=== PATIENT | female | born 1980 | race Caucasian/White ===

== ENCOUNTER 2023-07-08 17:45 | Emergency (ER) | payer OTHER, SELFPAY ==
[2023-07-08 17:50] VITALS: BP 122/80; PULSE 84; O2SAT 99
[2023-07-08 18:14] VITALS: BP 109/62; PULSE 100; RESP 18; TEMP 37; O2SAT 94; BMI 29.4
--- NOTE | 2023-07-08 18:18 | ED.MEDCLEAR ---
HPI - Medical Clearance General Chief complaint: Medical Clearance Stated complaint: COCAINE USE Time Seen by Provider: 07/09/23 00:54 Source: patient and RN notes reviewed Mode of arrival: ambulatory Limitations: no limitations History of Present Illness HPI Narrative: This is a 42-year-old female, with a history of polysubstance abuse, presenting to the emergency department seeking medical clearance. Patient states that she left the and our house where she has been since May and smoked crack cocaine. She states that she is feeling well and would like to return back to the and our house however needs a urine drug screen. Denies any chest pain, shortness of breath, abdominal pain, nausea, vomiting or diarrhea. She has no medical complaints. No SI or HI. No other complaints or concerns at this time. MD complaint: medical clearance requested Place: street Alleged Intoxication: Yes Compliant with Home Medications: Yes Associated Symptoms: denies other symptoms Treatments Prior to Arrival: none Related Information Allergies Allergy/AdvReac Type Severity Reaction Status Date / Time No Known Allergies Allergy Verified 07/08/23 18:13 Review of Systems Review of Systems: Yes all other systems are reviewed and are negative Constitutional: Constitutional: Reports as per [facility] Social History Social History Advance Directives: No Advance Directives Information Provided: No Physical Exam Vital Signs: Vital Signs: Last Vital Signs Temp 97.8 F 07/09/23 00:24 Pulse 81 07/09/23 00:24 Resp 20 07/09/23 00:24 BP 101/58 L 07/09/23 00:24 Pulse Ox 93 07/09/23 00:24 O2 Del Method Room Air 07/09/23 00:24 BMI result Body Mass Index 29.4 Const: General: cooperative, comfortable and no acute distress Orientation/consciousness: patient oriented x3 Limitations: no limitations HEENT: Head: Yes normal to inspection, Yes normocephalic and Yes atraumatic Ears: hearing grossly normal bilaterally General nose exam: Normal external nose present Face and sinus: Yes normal facial exam Mouth: Normal oral and palatal mucosa present, oropharynx normal and moist mucous membranes Throat: Yes posterior oropharynx normal Eyes: General: appearance normal, both eyes and all related structures Eyelids: Yes eyelids normal Conjunctivae: conjunctivae normal Sclerae: sclerae normal Pupils: Equal, round and reactive pupils present EOM: EOMs intact bilaterally Neck: Neck: Yes normal visual inspection, Yes full ROM and Yes no lymphadenopathy Lymphatic: no lymphadenopathy noted Chest: Chest palpation & inspection: normal inspection of the chest Resp: Effort & Inspection: normal respiratory effort and able to speak in complete sentences Auscultation: clear to auscultation bilaterally, no crackles, no rales, no rhonchi and no wheezes Cardio: Rate: regular rate Rhythm: regular rhythm Heart sounds: S1 normal heart sound present and S2 normal heart sound present GI: Inspection: Yes normal to inspection Skin: General skin exam: no rashes or lesions noted Trauma: no lacerations or abrasions Wounds: no wounds Neuro: General: patient oriented x3 and moves all extremities Cranial nerves: Yes Equal, round and reactive pupils present Extrem: General: Yes normal to inspection Right upper extremity: normal to inspection Left upper extremity: normal to inspection Right lower extremity: normal to inspection Left lower extremity: normal to inspection Course Course Course Narrative: RME: Patient presents to the ED for drug use. Sober house once [facility] for medical clearance. cocaine use. no phsycial compaltins. Medical Decision Making Medical Decision Making [facility] Narrative: This is a 42-year-old female, with a history of polysubstance abuse, presenting to the emergency department for medical clearance. She smoked crack cocaine this evening and would like to return back to the [facility]. She has normal vital signs. Urine drug screen reveals positive opiates, fentanyl, and cocaine. She has no medical complaints. No chest pain, shortness of breath. She is clinically sober. Discussed findings with patient, she has no questions or concerns, no other complaints or concerns at this time. Differential Diagnosis Differential Diagnoses: The differential diagnosis associated with the presentation includes Polysubstance use, depression, anxiety, opioid use disorder, overdose Lab Data [facility] Lab Attestation statement: I reviewed the patient's lab results. Positive opiates, fentanyl, and cocaine Labs: Lab Results 07/08/23 Range/Units 20:24 Urine Opiates Screen POSITIVE H (Not Detect) Urine Fentanyl Screen POSITIVE H (Not Detect) Ur Barbiturates Screen Not Detected (Not Detect) Ur Phencyclidine Scrn Not Detected (Not Detect) Ur Amphetamines Screen Not Detected (Not Detect) U Benzodiazepines Scrn Not Detected (Not Detect) Urine Cocaine Screen POSITIVE H (Not Detect) U Marijuana (THC) Screen Not Detected (Not Detect) Radiology Impression Discussion of test interpretation with radiology: I have reviewed the radiologist's reading. Discharge Plan Discharge Clinical Impression: Polysubstance abuse Patient Disposition: Home, Self-Care Instructions: Polysubstance Abuse (ED) Additional Instructions: You were seen in the emergency department for medical clearance. Your urine today shows your positive for opiates, fentanyl, and cocaine. Please avoid using drugs as they will kill you. If any new or worsening symptoms occur, including chest pain or shortness of breath, please return for re-evaluation. Interventions: ED Discharge Assessment Last Done: 07/09/23 01:17 Discharge Date/Time: 07/09/23 01:18
[2023-07-08 20:43] LABS: Amphetamine Screen Urine Not Detected (Not Detect); Barbiturates, Urine Not Detected (Not Detect); Benzodiazepines Screen Urine Not Detected (Not Detect); Cannabinoid Screen Urine Not Detected (Not Detect); Cocaine Screen Urine POSITIVE (Not Detect); Fentanyl, urine POSITIVE (Not Detect); Opiate Screen Urine POSITIVE (Not Detect); Phencyclidine Screen Urine Not Detected (Not Detect)
[2023-07-09 00:24] VITALS: BP 101/58; PULSE 81; RESP 20; TEMP 36.6; O2SAT 93
== END 2023-07-09 01:18 | disposition home or self-care (01) ==
PROVIDERS: Physician Assistant; Emergency Provider Internal Medicine
DX: Z02.83 Encounter for blood-alcohol and blood-drug test (principal); F19.10 Other psychoactive substance abuse, uncomplicated
CPT/HCPCS: 80307; 99282; 99284

== ENCOUNTER 2023-07-30 17:30 | Emergency (ER) | payer OTHER, SELFPAY ==
[2023-07-30 17:36] VITALS: BP 111/70; PULSE 96; O2SAT 97
--- NOTE | 2023-07-30 17:44 | ED.OVERDOSE ---
HPI - Overdose General Chief Complaint: ETOH/Substance Use Stated Complaint: NARCOTIC USE Time Seen by Provider: 07/30/23 17:40 Source: patient Mode of arrival: EMS History of Present Illness HPI Narrative: 42-year-old female who presents via EMS for accidental overdose, she denies any SI/HI and states she is already in a half-way house, she sees a psychiatrist regularly and is currently on prescription medications which she states that she has been taking. Patient reports having taken heroin and crack. Related Data Allergies Allergy/AdvReac Type Severity Reaction Status Date / Time No Known Allergies Allergy Verified 07/08/23 18:13 Review of Systems Review of Systems: Pertinent positives and negatives as stated in HPI PMFSH Past Medical History Source: nursing notes reviewed Social History Social History Advance Directives: No Advance Directives Information Provided: No Physical Exam Vital Signs: Vital Signs: Last Vital Signs Temp 98.5 F 07/30/23 18:00 Pulse 85 07/30/23 18:00 Resp 16 07/30/23 18:00 BP 91/49 L 07/30/23 18:00 Pulse Ox 92 07/30/23 18:00 O2 Del Method Room Air 07/30/23 18:00 BMI result Body Mass Index 25.7 VITAL SIGNS: Reviewed. GENERAL: Well developed, well nourished, in no acute distress. HEAD: Normocephalic/atraumatic EYES: PERRLA, EOMI EARS: Ext canals without abnormality NOSE: Nares patent bilateral OROPHARYNX: no oral lesions noted, posterior pharynx clear NECK: Supple, no adenopathy LUNGS: Normal breath sounds. No adventitious sounds or accessory muscle use. SpO2<92> CARDIOVASCULAR: Regular rate and rhythm without noted murmurs ABDOMEN: Soft, non-tender, non-distended with bowel sounds. MUSCULOSKELETAL: No tenderness, deformities, or effusions noted on gross inspection. EXTREMITIES: No cyanosis, clubbing or edema. SKIN: Inspection of the skin reveals no rashes NEUROLOGIC: Alert and oriented x 4. Strength and sensation to light touch were grossly intact x 4. Medical Decision Making Medical Decision Making MDM Narrative: 42-year-old female with history and clinical presentation most consistent with accidental overdose there is no evidence to suggest intentional attempt and she continues to decline SI/HI. She is hemodynamically stable and will be discharged with home Narcan. 190: NIKOLAY Eval.. [facility] [place] facility is declining return. Pt is not interested in detox. Mom is going to come and pick her up. Patient is otherwise discharged home with home Narcan continues to endorse that she is not suicidal or homicidal. Differential Diagnosis Differential Diagnoses: The differential diagnosis associated with the presentation includes Please see the discussion above Admission/Observation Consideration of admission/observation: Escalation of care including admission/observation considered Please see the discussion above Lab Data MDM Lab Attestation statement: I reviewed the patient's lab results. Please see the discussion above Critical Care Time Critical Care Time Critical Care Time: Yes Total Critical Care Time: 45 Attestation: I personally attest to this time spent taking care of the patient. Discharge Plan Discharge Clinical Impression: Overdose Patient Disposition: Home, Self-Care Instructions: Adult Overdose (ED) Additional Instructions: Please return to this emergency room if you experience any worsening of symptoms or whether you need additional assistance or feel overwhelmed.
[2023-07-30 18:00] VITALS: BP 91/49; PULSE 85; RESP 16; TEMP 36.9; O2SAT 92; BMI 25.7
--- NOTE | 2023-07-30 18:09 | PC.NURSE ---
patient changed into hospital attire, belongings in decon patient has her phone at bedside. patient is alert oriented, calm and cooperative. respirations equal and unlabored, VSS
--- OUTSIDE RECORDS SUMMARY | 2023-07-30 19:01 | XMS_ITS | Continuity of Care Document ---
Author Name Unknown Organization [facility] Address [address] [place] [address]- Care Team Providers Care Clinical Immunologist Name Role Phone Melanie Charlton NP Primary Care Physician Encounter [facility] Date(s): 08/24/21 - 09/26/21 [facility] [address] [place] [address]- Attending Physician: Yovanny Carr MD Referring Physician: Melanie Charlton NP Allergies, Adverse Reactions, Alerts No Known Allergies Immunizations Given and Recorded Vaccine Date Status Refusal Reason tetanus/diphtheria/pertussis, acel(Tdap) 06/24/17 Given Social History Social History Type Response Tobacco Type: Cigarettes. To bacco use times per day: foremr smoker, 1/2 PPD. Started at age: 19 Years. Stopped at age: 35 Years. Sex
--- OUTSIDE RECORDS SUMMARY | 2023-07-30 19:01 | XMS_ITS | Continuity of Care Document ---
Author Name Unknown Organization [facility] [place] Address [address] [place] [address]- Care Team Providers Care Front End Engineer Name Role Phone Melanie Charlton NP Primary Care Physician Encounter [facility] Date(s): 10/19/21 - 11/18/21 [facility] [place] [address] [place] [address]- Allergies, Adverse Reactions, Alerts No Known Allergies Immunizations Given and Recorded Vaccine Date Status Refusal Reason tetanus/diphtheria/pertussis, acel(Tdap) 06/24/17 Given Social History Social History Type Response Tobacco Type: Cigarettes. To bacco use times per day: foremr smoker, 1/2 PPD. Started at age: 19 Years. Stopped at age: 35 Years. Sex
--- OUTSIDE RECORDS SUMMARY | 2023-07-30 19:01 | XMS_ITS | Continuity of Care Document ---
Author Name Unknown Organization [facility] Address [address] [place] [address]- Care Team Providers Care Head Of Marketing Name Role Phone Melanie Charlton NP Primary Care Physician Encounter [facility] Date(s): 10/16/21 - 10/16/[address] [address]- Discharge Disposition: A-D/C Home Attending Physician: Ever Dumont MD Admitting Physician: Tim LAUREN, Ever Bush Referring Physician: Not on Staff, Referring MD Allergies, Adverse Reactions, Alerts No Known Allergies Immunizations Given and Recorded Vaccine Date Status Refusal Reason tetanus/diphtheria/pertussis, acel(Tdap) 06/24/17 Given Medications ibuprofen 600 mg oral tablet 600 mg, 1, tablet, By Mouth, Every 6 hours, PRN, # 16 tablet, Refills 0, Tot. Refills 0, Acute 10/24/21 11:48:00 EDT, Pain , Moderate, 10/16/21 11:48:00 EDT, Route to Pharmacy Electronically, [facility]/pharmacy #[id number], Partial fill upon patient request if th... Start Date: 10/16/21 Stop Date: 10/24/21 Status: Ordered ondansetron 4 mg oral tablet, disintegrating 1 tablet = 4 mg, By Mouth, Every 6 hours, PRN as needed for nausea/vomiting, # 14 tablet, 0 Refills, Maintenance, 10/16/21 11:48:00 EDT, DIS Tablet, [id number], Partial fill upon patient request if the prescription is for a schedule II opioid... Start Date: 10/16/21 Status: Ordered Vital Signs Most recent to oldest [Reference Range]: 1 2 Height 167 cm (10/16/21 11:24 AM) 167 cm (10/16/21 AM) Weight 77.4 kg (10/16/2124 AM) 77.4 kg (10/16/21 AM) Oxygen Saturation [94-100 %] 100 % (10/16/21 AM) Pulse Rate [55-90 bpm] 84 bpm (10/16/21 AM) Body Mass Index [18.5-24.99] 27.75 *H* (10/16/21 AM) Blood Pressure [90-138/55-84 mm Hg] 132/ 89mm Hg (10/16/21 AM) Respiratory Rate [16-30 br/min] 17 br/mi n (10/16/21 AM) Temperature [96.8-100.4 DegF] 99.9 DegF (10/16/21 AM) Mode of Delivery (Oxygen) Room air (10/16/21 AM) Blood pressure sites Arm, right (10/16/21 AM) Temperature Route Temporal (10/16/21 AM) Dry Weight 77.4 kg (10/16/21:24 AM) 77.4 kg (10/16/21 AM) Weight Obtained Via Standing scale (10/16/21 AM) Dry Weight Obtained Via Standing scale (10/16/21 AM) Social History Social History Type Response Tobacco Type: Cigarettes. To bacco use times per day: foremr smoker, 1/2 PPD. Started at age: 19 Years. Stopped at age: 35 Years. Sex
--- OUTSIDE RECORDS SUMMARY | 2023-07-30 19:01 | XMS_ITS | Continuity of Care Document ---
Author Name Unknown Organization [facility] [place] Address [address] [place] [address]- Care Team Providers Care Ambulatory Care Coordinator Name Role Phone Melanie Charlton NP Primary Care Physician ( [phone] Encounter [facility] Date(s): 08/21/21 - 11/29/21 [facility] [place] [address] [place] [address]- Attending Physician: Arvind LAUREN ([facility]), José Miguel Bush Allergies, Adverse Reactions, Alerts No Known Allergies Immunizations Given and Recorded Vaccine Date Status Refusal Reason tetanus/diphtheria/pertussis, acel(Tdap) 06/24/17 Given Medications Aerochamber See Instructions, # 1 each, Maintenance, Use with MDI, 11/28/21 17:04:00 EDT, Supply, 168, cm, 11/28/21 13:16:00 EDT, Height, 83.2, kg, 11/27/21 9:20:00 EDT, Dry Weight Start Date: 11/28/21 Status: Ordered albuterol CFC free 90 mcg/inh inhalation aerosol 2, puffs, Inhalation, Every 4 hours, PRN, use with spacer chamber, # 8 Gm, Refills 0, Tot. Refills 0, Maintenance, 11/28/21 17:02:00 EDT, Aerosol, Route to Pharmacy Electronically, [id number], [facility]/pharmacy #[id number], 168, cm, ... Start Date: 11/28/21 Status: Ordered Bactrim DS 800 mg-160 mg oral tablet 1 tablet, By Mouth, 2 times a day, for 5 days, # 10 tablet, 0 Refills, Acute 12/03/21 21:00:00 EDT,06/01/22 21:00:00 EDT, Tablet, [id number], 1 tablet By Mouth 2 times a day,x5 days, 168, cm, 11/28/21 13:16:00 EDT, Height, 83.2, kg, 11/27/21... Start Date: 11/28/21 Stop Date: 12/03/21 Status: Ordered Problem List Condition Effective Dates Status Health Status Inform ant Elevated hemoglobin A1c(Confirmed) Active Social History Social History Type Response Tobacco Type: Cigarettes. To bacco use times per day: foremr smoker, 1/2 PPD. Started at age: 19 Years. Stopped at age: 35 Years. Sex
--- OUTSIDE RECORDS SUMMARY | 2023-07-30 19:01 | XMS_ITS | Continuity of Care Document ---
Author Name Unknown Organization [facility] [place] Address [address] [place] [address]- Care Team Providers Care Capacitor Repairer Name Role Phone Melanie Charlton NP Primary Care Physician Encounter [facility] Date(s): 09/12/22 - 10/12/22 [facility] [address] [place], [place] [address] Allergies, Adverse Reactions, Alerts No Known Allergies [...] 17:02:00 EDT, Aerosol, Route to Pharmacy Electronically, [id number], [facility]/pharmacy #[id number], 168, cm, ... Start Date: 11/28/21 Status: Ordered predniSONE 5 mg oral tablet 3 tablet = 15 mg, By Mouth, Daily, # 90 tablet, 0 Refills, Maintenance, 10/31/21 13:00:00 EDT, [id number], Partial fill upon patient request if the prescription is for a schedule II opioid drug., 167, cm, 10/31/21 12:34:00 EDT, Height, 77.4, k... Start Date: 10/31/21 Status: Ordered Problem List Condition Confirmation Course Effective Dates Status Health St atus Informant Elevated hemoglobin A1c Confirmed Active Social History Social History Type Response Tobacco Type: Cigarettes. To bacco use times per day: foremr smoker, 1/2 PPD. Started at age: 19 Years. Stopped at age: 35 Years. Sex Patient Care team information Care Team Personnel Name: Melanie Charlton NP Position: [facility] Associate Professional Member Role: PCP Address: Address: [address] [place] [address]- Care Team Related Persons Name: MARYCARMEN MALDONADO Address: home [address] [place] [address] [place] [address]
--- OUTSIDE RECORDS SUMMARY | 2023-07-30 19:02 | XMS_ITS | Continuity of Care Document ---
Author Name Unknown Organization [facility] Address [address] [place] [address]- Care Team Providers Care Microsoft Dynamics Consultant Name Role Phone Melanie Charlton NP Primary Care Physician ( [phone] Encounter [facility] Date(s): 02/21/22 - 03/23/22 [facility] [address] [place], [place] [address] [place] Attending Physician: Zuleika Flynn Admitting Physician: AdmtrZuleika Referring Physician: Admtr, ArJohn Allergies, Adverse Reactions, Alerts No Known Allergies [...] 17:02:00 EDT, Aerosol, Route to Pharmacy Electronically, [id number], [id number], 168, cm, ... Start Date: 11/28/21 Status: Ordered predniSONE 5 mg oral tablet 3 tablet = 15 mg, By Mouth, Daily, # 90 tablet, 0 Refills, Maintenance, 10/31/21 13:00:00 EDT, [id number], Partial fill upon patient request if the prescription is for a schedule II opioid drug., 167, cm, 10/31/21 12:34:00 EDT, Height, 77.4, k... Start Date: 10/31/21 Status: Ordered Problem List Condition Effective Dates Status Health Status Inform ant Elevated hemoglobin A1c(Confirmed) Active Social History Social History Type Response Tobacco Type: Cigarettes. To bacco use times per day: foremr smoker, 1/2 PPD. Started at age: 19 Years. Stopped at age: 35 Years. Sex Care Team Personnel Name: Melanie Charlton NP Address: [address] [place] [address]
--- OUTSIDE RECORDS SUMMARY | 2023-07-30 19:02 | XMS_ITS | Continuity of Care Document ---
Author Name Unknown Organization [facility] Address [address] [place] [address]- Care Team Providers Care Underwriting Consultant Name Role Phone Melanie Charlton NP Primary Care Physician Encounter [facility] Date(s): 08/27/21 - 09/26/21 [facility] [address] [place] [address]- Allergies, Adverse Reactions, Alerts No Known Allergies Immunizations Given and Recorded Vaccine Date Status Refusal Reason tetanus/diphtheria/pertussis, acel(Tdap) 06/24/17 Given Social History Social History Type Response Tobacco Type: Cigarettes. To bacco use times per day: foremr smoker, 1/2 PPD. Started at age: 19 Years. Stopped at age: 35 Years. Sex
--- OUTSIDE RECORDS SUMMARY | 2023-07-30 19:02 | XMS_ITS | Continuity of Care Document ---
Author Name Unknown Organization [facility] Address [address] [place] [address]- Care Team Providers Care Sound Engineering Technician Name Role Phone Boni SOARES, Eduardo Byrd Primary Care Physician ( [phone] Encounter [facility] [id number] Date(s): 10/22/19 - 11/21/19 [facility] [address] [address]- Attending Physician: Cammy Sosa NP Allergies, Adverse Reactions, Alerts Substance Reaction Severity Status NKA Active Immunizations Given and Recorded Vaccine Date Status Refusal Reason tetanus/diphtheria/pertussis, acel(Tdap) 06/24/17 Given Medications Chantix Starter Pack 0.5 mg-1 mg oral tablet 1 tablet, By Mouth, 2 times a day, as directed on package labeling, # 53 tablet, 0 Refills, Maintenance, 06/18/17 9:00:46, Tablet, 1 tablet By Mouth 2 times a day,Instr:as directed on package labeling Start Date: 06/18/17 Status: Ordered Social History Social History Type Response Smoking Status Current every day sm oker; Type: Cigarettes; Interested in cessation: Yes; Tobacco use times per day: 1/2 ppd; Cessation attempts: 1; entered on: 06/18/17 Sex
--- OUTSIDE RECORDS SUMMARY | 2023-07-30 19:02 | XMS_ITS | Continuity of Care Document ---
Author Name Unknown Organization [facility] Address [address] [place] [address]- Care Team Providers Care Japanese Professor Name Role Phone Boni SOARES, Eduardo Byrd Primary Care Physician Encounter [facility] Date(s): 08/14/21 - 08/14/[address] [address]- Encounter Diagnosis Joint pain(Final) - 08/14/21 Discharge Disposition: A-D/C Home Attending Physician: Garrick Lowe MD Admitting Physician: Garrick Lowe MD Referring Physician: Not on Staff, Referring MD [...] package labeling Start Date: 06/18/17 Status: Ordered Dilaudid Inj 1 mg, Injection, IV Push Slowly, Once, Routine, 08/14/21 16:00:00 EST, Stop date 08/14/21 16:00:00 EST Start Date: 08/14/21 Stop Date: 08/14/21 Status: Completed oxyCODONE 5 mg oral tablet 5 mg, 1, tablet, By Mouth, Every 6 hours, PRN, may partially fill, # 7 tablet, Refills 0, Tot. Refills 0, Acute 08/17/21 16:02:00 EST, for pain, 08/14/21 16:02:00 EST, Route to Pharmacy Electronically, [facility]/pharmacy #[id number], Partial fill upon patient req... Start Date: 08/14/21 Stop Date: 08/17/21 Status: Ordered predniSONE 20 mg oral tablet 3 tablet = 60 mg, By Mouth, Daily, for 4 days, Starting the day following your emergency departmentvisit, # 12 tablet, 0 Refills, Acute 08/18/21 16:02:00 EST, 08/14/21 16:02:00 EST, Tablet, [facility]/pharmacy #[id number], Partial fill upon patient request if the... Start Date: 08/14/21 Stop Date: 08/18/21 Status: Ordered Vital Signs Most recent to oldest [Reference Range]: 1 2 3 Height 168 cm (08/14/21 12:30 PM) Weight 83.3 kg (08/14/21 12:30 PM) Oxygen Saturation [94-100 %] 100 % (08/14/21 4:00 PM) 97 % (08/14/21 3:00 PM) 99 % (08/14/21 12:30 PM) Pulse Rate [55-90 bpm] 76 bpm (08/14/21 4:00 PM) 69 bpm (08/14/21 3:00 PM) 101 bpm *H* (08/14/21 12:30 PM) Blood Pressure [90-138/55-84 mm Hg] 112/83mm Hg (08/14/21 4:00 PM) 105/89mm Hg (08/14/21 3:00 PM) 136/78mm Hg (08/14/21 12:30 PM) Respiratory Rate [16-30 br/min] 22 br/min (08/14/21 4:00 PM) 20 br/min (08/14/21 3:06 PM) 22 br/min (08/14/21 3:00 PM) Temperature [96.8-100.4 DegF] 98.1 DegF (08/14/21 4:00 PM) 98.7 DegF (08/14/21 3:00 PM) 98.4 DegF (08/14/21 12:30 PM) Mode of Delivery (Oxygen) Room air (08/14/21 4:00 PM) Room air (08/14/21 3:00 PM) Room air (08/14/21 12:30 PM) Blood pressure sites Arm, right (2/15/22 4:00 PM) Arm, right (08/14/21 3:00 PM) Arm, right (08/14/21 12:30 PM) Temperature Route Temporal (08/14/21 4:00 PM) Oral (08/14/21 3:00 PM) Oral (08/14/21 12:30 PM) Dry Weight 83.3 kg (08/14/21 12:30 PM) Weight Obtained Via Standing scale (08/14/21 12:30 PM) Dry Weight Obtained Via Standing scale (08/14/21 12:30 PM) Social History Social History Type Response Smoking Status Current every day joseph lopez; Type: Cigarettes; Interested in cessation: Yes; Tobacco use times per day: 1/2 ppd; Cessation attempts: 1; entered on: 06/18/17 Sex
--- OUTSIDE RECORDS SUMMARY | 2023-07-30 19:02 | XMS_ITS | Continuity of Care Document ---
Author Name Unknown Organization [facility] Address [address] [place] [address]- Care Team Providers Care Enterprise Application Analyst Name Role Phone Boni SOARES, Eduardo Byrd Primary Care Physician Encounter [facility] NBR [id number] Date(s): 10/22/19 - 11/21/19 [facility] [facility] [address] [place] [address]- Attending Physician: Zuleika Flynn Admitting Physician: Zuleika Flynn Referring Physician: AdmtrZuleika Allergies, Adverse Reactions, Alerts Substance Reaction Severity [...]
--- OUTSIDE RECORDS SUMMARY | 2023-07-30 19:02 | XMS_ITS | Continuity of Care Document ---
Author Name Unknown Organization [facility] Address [address] [place] [address]- Care Team Providers Care Atomic Physics Teacher Name Role Phone Zoltan SOARES, Melanie Douglas Primary Care Physician Encounter [facility] Date(s): 11/26/21 - 11/28/[address] [address]- Discharge Disposition: A-D/C Home Attending Physician: Kristina Francis MD Admitting Physician: Gallito LAUREN, Yael Referring Physician: Tyler Bundy MD Allergies, Adverse Reactions, Alerts No Known [...] 17:02:00 EDT, Aerosol, Route to Pharmacy Electronically, [id number], [facility]/pharmacy #[id number], 168, cm, ... Start Date: 11/28/21 Status: Ordered Bactrim DS 800 mg-160 mg oral tablet 1 tablet, By Mouth, 2 times a day, for 5 days, # 10 tablet, 0 Refills, Acute 12/03/21 21:00:00 EDT,11/28/21 21:00:00 EDT, Tablet, [facility]/pharmacy #[id number], 1 tablet By Mouth 2 times a day,x5 days, 168, cm, 11/28/21 13:16:00 EDT, Height, 83.2, kg, 11/27/21... Start Date: 11/28/21 Stop Date: 12/03/21 Status: Ordered Problem List Condition Effective Dates Status Health Status Inform ant Elevated hemoglobin A1c(Confirmed) Active Results Orders for Microbiology Reports Name Date Sputum Culture w/ Gram Smear 11/28/21 Microbiology Reports TEST:Sputum Culture STATUS:Unauthenticated BODY SITE: SOURCE:EXPECT COLLECTED DATE/TIME:11/28/21 5:20 PM Sputum Culture SPECIMEN DESCRIPTION : EXPECTORATED SPUTUM SPECIAL REQUESTS : NONE GRAM STAIN : 4+ POLYMORPHONUCLEAR LEUKOCYTES 1+ SQ.EPITHELIAL CELLS 2+ GRAM POSITIVE COCCI 1+ GRAM NEGATIVE RODS REPORT STATUS : PRELIMINARY REPORT Radiology Reports * Exam Date Time Procedure Performing Provider Status 11/26/21 2:41 PM Chest 2 Views Frontal and Lat Norris Galvan; Auth (Verified) Notes: (Chest 2 Views Frontal and Lat) Reason For Exam: Asthma RESULT: Chest 2 Views Frontal and Lat Chest 2 Views Frontal and Lat Hx of Present Illness: Pt reports cough x 1 week and SOB x 2 days. desnies chest pain.; Reason: Asthma; Clinical Question(s): Asthma COMPARISON: 10/11/2012. FINDINGS: LINES AND TUBES: None. LUNGS AND PLEURA: Clear lungs. Normal pulmonary vascularity. No pleural effusion. No pneumothorax. HEART, MEDIASTINUM AND VAN: Heart is normal in size. Normal upper mediastinal and hilar contour. BONES AND SOFT TISSUES: No acute abnormality. IMPRESSION: No acute abnormality. WSN: [id number] Ordering Physician: Aakash Keller Dictated By: Maddy Garrett MD Dictated Date/Time: 11/26/21 2:45 pm Reviewed By: Maddy Garrett MD Signed By: Maddy Garrett MD Signed Date/Time: 11/26/21 2:45 pm Transcribed By: JOHNSON Transcribed Date/Time: 11/26/21 2:44 pm Vital Signs Most recent to oldest [Reference Range]: 1 2 3 Height 168 cm (11/28/21 1:16 PM) 168 cm (11/28/21 9:37 AM) 168 cm (11/28/21 5:01 AM) Weight 82.2 kg (11/27/21 4:33 PM) 83.2 kg (11/27/21 9:20 AM) 83.2 kg (11/27/21 1:28 AM) Oxygen Saturation [94-100 %] 94 % (11/28/21 1:16 PM) 93 % *L* (11/28/21 9:37 AM) 95 % (11/28/21 5:01 AM) Pulse Rate [55-90 bpm] 132 bpm 1 *H* (11/28/21 1:16 PM) 99 bpm *H* (11/28/21 9:37 AM) 83 bpm (11/28/21 5:01 AM) Body Mass Index [18.5-24.99] 29.12 *H* (11/27/21 4:33 PM) 29.48 *H* (11/27/21 9:20 AM) 29.48 *H* (11/27/21 1:28 AM) Blood Pressure [90-138/55-84 mm Hg] 134/78mm Hg (11/28/21 1:16 PM) 139/78mm Hg *H* (11/28/21 9:37 AM) 113/69mm Hg (11/28/21 5:01 AM) Respiratory Rate [16-30 br/min] 18 br/min (11/28/21 1:16 PM) 18 br/min (11/28/21 9:37 AM) 20 br/min (11/28/21 5:01 AM) Temperature [96.8-100.4 DegF] 98.4 DegF (11/28/21 1:16 PM) 98.4 DegF (11/28/21 9:37 AM) 98.5 DegF (11/28/21 5:01 AM) Liters per Minute 4 L/min (11/28/21 5:00 AM) 4 L/min (11/27/21 8:05 PM) 5 L/min (11/27/21 4:33 PM) Mode of Delivery (Oxygen) Room air (11/28/21 1:16 PM) Room air (11/28/21 9:37 AM) Nasal cannula (11/28/21 5:00 AM) Blood pressure sites Arm, left (11/28/21 1:16 PM) Arm, left (11/28/21 9:37 AM) Arm, right (11/27/21 4:33 PM) Temperature Route Oral (11/28/21 1:16 PM) Oral (11/28/21 9:37 AM) Oral (11/27/21 4:33 PM) Dry Weight 83.2 kg (11/27/21 9:20 AM) 83.2 kg (11/27/21 1:28 AM) 83.2 kg (11/26/21 9:04 PM) Weight Obtained Via Standing scale (11/27/21 4:33 PM) 1Result Comment: reported to RN Social History Social History Type Response Tobacco Type: Cigarettes. To bacco use times per day: foremr smoker, 1/2 PPD. Started at age: 19 Years. Stopped at age: 35 Years. Sex
--- OUTSIDE RECORDS SUMMARY | 2023-07-30 19:02 | XMS_ITS | Continuity of Care Document ---
Author Name Unknown Organization [facility] [place] Address [address] [place] [address]- Care Team Providers Care Deck Officer Name Role Phone Melanie Charlton NP Primary Care Physician ( [phone] Encounter [facility] Date(s): 10/16/21 - 11/15/21 [facility] [place] [address] [place] [address]- Allergies, Adverse Reactions, Alerts No Known Allergies Immunizations Given and Recorded Vaccine Date Status Refusal Reason tetanus/diphtheria/pertussis, acel(Tdap) 06/24/17 Given Social History Social History Type Response Tobacco Type: Cigarettes. To bacco use times per day: foremr smoker, 1/2 PPD. Started at age: 19 Years. Stopped at age: 35 Years. Sex
--- OUTSIDE RECORDS SUMMARY | 2023-07-30 19:02 | XMS_ITS | Continuity of Care Document ---
Author Name Unknown Organization [facility] Address [address] [place] [address]- Care Team Providers Care Loan Servicing Specialist Name Role Phone Melanie Charlton NP Primary Care Physician Encounter [facility] Date(s): 11/23/21 - 03/23/22 [facility] [address] [place] [address]- Attending Physician: Yovanny Carr MD Allergies, Adverse Reactions, Alerts No Known [...] 17:02:00 EDT, Aerosol, Route to Pharmacy Electronically, [id number], [facility]/pharmacy #[id number], 168, cm, ... Start Date: 11/28/21 Status: Ordered predniSONE 5 mg oral tablet 3 tablet = 15 mg, By Mouth, Daily, # 90 tablet, 0 Refills, Maintenance, 10/31/21 13:00:00 EDT, [facility]acy #[id number], Partial fill upon patient request if the [...] Team Personnel Name: Melanie Charlton NP Address: [address] [place] [id number]
--- OUTSIDE RECORDS SUMMARY | 2023-07-30 19:02 | XMS_ITS | Continuity of Care Document ---
Author Name Unknown Organization [facility] [place] Address [address] [place] [address]- Care Team Providers Care Stone Fabricator Name Role Phone Melanie Charlton NP Primary Care Physician Encounter [facility] Date(s): 08/16/21 - 09/20/21 [facility] [place] [address] [place] [address]- Attending Physician: Anushka Salazar MD Allergies, Adverse Reactions, Alerts No Known Allergies Immunizations Given and Recorded Vaccine Date Status Refusal Reason tetanus/diphtheria/pertussis, acel(Tdap) 06/24/17 Given Social History Social History Type Response Tobacco Type: Cigarettes. To bacco use times per day: foremr smoker, 1/2 PPD. Started at age: 19 Years. Stopped at age: 35 Years. Sex
--- NOTE | 2023-07-30 20:13 | MHC.CARE ---
Pt seen by CARE Team for SUDE. Pt declines any services due to being connected with [facility] and [facility] is holding her bed . I talked to Mary Gentile from [facility], certified wellness program coordinator and she states this its pt's third occurrence and believes pt will benefit from ATS. She states pt relapsed 3x in the last month and has had paraphernalia in the program. Pt was informed of this and pt requested to be discharged. She declined any resources. She denies SI/HI.
== END 2023-07-30 19:35 | disposition home or self-care (01) ==
PROVIDERS: Emergency Provider Student in an Organized Health Care Education/Training Program
DX: T40.1X1A Poisoning by heroin, accidental (unintentional), initial encounter (principal); T40.5X1A Poisoning by cocaine, accidental (unintentional), initial encounter; Y92.9 Unspecified place or not applicable
CPT/HCPCS: 99282

== ENCOUNTER 2024-05-25 11:42 | Emergency (ER) | payer OTHER, SELFPAY ==
--- NOTE | ~2024-05-25 | XR_ITS ---
EXAMINATION: XR CHEST CLINICAL INFORMATION: cough 1 week, fever COMPARISON: None available. TECHNIQUE: 2 views of the chest were obtained. FINDINGS: Dextroscoliosis of the thoracic spine with multilevel degenerative changes. No pleural effusion. Heart size is normal. There is no gross pneumothorax. Patchy opacities in the mid to lower left lung. XR/XR chest 2V IMPRESSION: Patchy opacities in the mid to lower left lung, concerning for pneumonia. This study was presented today May 25, 2024 for interpretation. Stat results provided at this time as requested by referring provider. Electronically signed by: Shannon Gooden MD 05/25/2024 01:30 PM SADIE
[2024-05-25 12:14] VITALS: BP 106/70; PULSE 103; RESP 20; TEMP 37.1; O2SAT 97; BMI 27.6
--- NOTE | 2024-05-25 12:16 | ED.GENADULT ---
HPI - General Adult General Chief complaint: Upper Respiratory Symptoms Stated complaint: Fever, SOB, cough Time Seen by Provider: 05/25/24 14:16 Source: patient Mode of arrival: ambulatory Limitations: no limitations History of Present Illness ED Provider: EMILIA DURANT PA-C HPI narrative: 43-year-old female with no significant pmhx presents to the ED today for evaluation of headache, cough productive of brown sputum, myalgias x1 week. Reports symptoms started about a week ago however was feeling better until yesterday. She has been taking DayQuil and Tylenol at home with minimal relief. Last dose around 8:00 a.m. today. Reports sick contacts at home. No known diagnosis. Denies fever, chills, sore throat, chest pain, SOB, wheezing, dyspnea, LE pain/ swelling, N/V/D, abd pain. No hx asthma. Vaccinations UTD. Related Data Previous Rx's ?Medication ?Instructions ?Recorded azithromycin 250 mg tablet See Rx Instructions PO .COMPLEX #6 05/25/24 tabs doxycycline hyclate 100 mg tablet 100 mg PO BID 7 days #14 tabs 05/25/24 guaifenesin 200 mg tablet 200 mg PO TID PRN cough #10 tabs 05/25/24 prednisone 20 mg tablet 40 mg (2 x 20 mg) PO DAILY 4 days 05/25/24 #8 tabs Allergies Allergy/AdvReac Type Severity Reaction Status Date / Time No Known Allergies Allergy Verified 05/25/24 12:16 Review of Systems Review of Systems: Constitutional: No fever, chills, fatigue, night sweats, weight changes ENT/Mouth: No ear pain, hearing loss, nasal congestion, sinus pain, rhinorrhea, sore throat Eyes: No eye pain, swelling, redness, vision changes, discharge Cardio: No chest pain, palpitations, RICHARDS, orthopnea, peripheral edema Pulm: No SOB, wheezing, dyspnea, hemoptysis, +productive cough GI: No nausea, vomiting, hematemesis, abdominal pain, diarrhea, constipation, hematochezia, melena : No irregular bleeding, dysuria, frequency, urgency, hesitancy, hematuria, flank pain, urinary flow changes, urinary incontinence or retention MSK: No back pain, neck pain, joint pain, +myalgias Skin: No lesions, rashes Neuro: No weakness, numbness, paresthesias, LOC, dizziness, +headache Psych: No anxiety/panic, depression, SI/HI, AH/VH All other systems reviewed and are negative. [facility] Past Medical History Attestation statement: The following information was validated with the patient. Source: old records reviewed and nursing notes reviewed Social History Social History Advance Directives: No Advance Directives Information Provided: No Physical Exam ED Vital Signs: Vital Signs - 24 hr 05/25/24 12:14 Temperature 98.7 F Pulse Rate 103 H Respiratory Rate 20 Blood Pressure 106/70 Pulse Oximetry 97 Oxygen Delivery Method Room Air BMI result Body Mass Index 27.6 tachycardic to 103, vitals otherwise wnl General: Well appearing, in no acute distress. Skin: Warm, dry, intact. No rashes or lesions. Head: Normocephalic, atraumatic. EENT: Hearing is intact b/l. Conjunctiva clear. Sclera is anicteric. PERRLA. EOM intact. Moist mucous membranes.? Posterior oropharynx WNL Neck: Supple without LAD Cardiac: Chest wall symmetric. RRR. Lungs: No tripoding. No accessory muscle use. Airway patent. No respiratory distress. Rhonchi to left lung base, otherwise clear. Congested cough. Abdomen: Soft, non-tender, non-distended. No rebound tenderness or guarding. Positive BS x4. Back: No midline spinous or paraspinal tenderness. No step off deformity. Ext: Upper and lower extremities atraumatic, without tenderness, deformity, swelling or erythema. No calf tenderness. Neuro: AOx3. Normal speech. Ambulating with steady gait. Psych: Appropriate mood and affect. Responds appropriately to questions. Course Course Course Narrative: This is a rapid medical exam performed by Marcus White NP: Additional HPI, ROS, PE not included below will be deferred to primary provider. Patient is a 43-year-old female presenting with complaint of cough, fever, shortness of breath x 1 week. Plan: viral swabs, cxr Reevaluation(s) Reevaluation #1: 0317 -- patient tested negative for COVID, flu, RSV, strep throat. Chest x-ray shows patchy opacities to mid/lower left lung, consistent with physical exam findings. Will treat for pneumonia. Patient treated with Solu-Medrol, doxy and azithromycin in the ED today. Tylenol given for headache with improvement. Will discharge patient with doxycycline, azithromycin, prednisone and guaifenesin. Advised to follow up with PCP for repeat chest x-ray to ensure resolution. Patient has remained stable throughout ED visit today. Discussed worrisome signs and symptoms and when to return to the ED. All questions answered at this time. Patient is agreeable with disposition and stable for discharge. Medical Decision Making Medical Decision Making [facility] Narrative: 43-year-old female with no significant pmhx presents to the ED today for evaluation of headache, cough productive of brown sputum, myalgias x1 week. Patient tachycardic to 103, vitals otherwise WNL. Afebrile. Not hypoxic. Sitting comfortably on exam bed. No tripoding, no accessory muscle use, no respiratory distress. Congested cough. Rhonchi to left lung base, otherwise clear throughout. skin w/d/i. no rashes. Differential diagnosis includes viral syndrome, bronchitis, pneumonia. Unlikely arrhythmia, ACS, pleural effusion, pneumothorax, strep throat. Plan for viral swabs, chest x-ray, re-evaluation. Differential Diagnosis Differential Diagnoses: The differential diagnosis associated with the presentation includes As above Admission/Observation Not indicated Lab Data [facility] Lab Attestation statement: I reviewed the patient's lab results. As above Labs: Lab Results 05/25/24 05/25/24 Range/Units 13:29 14:00 Influenza Type A (PCR) NEGATIVE (Negative) Influenza Type B (PCR) NEGATIVE (Negative) RSV RNA Qual (PCR) NEGATIVE (Negative) SARS-CoV-2 RNA (RT-PCR) NEGATIVE (Negative) S. pyogenes GrpA GONSALO Negative (Negative) Independent Interpretation I performed an independent interpretation of an: Plain X-Ray Interpretation: Chest x-ray with opacities to left lung base, agree with radiologist's interpretation. Radiology Impression Discussion of test interpretation with radiology: I have reviewed the radiologist's reading. Radiologist Impression: EXAMINATION: XR CHEST CLINICAL INFORMATION: cough 1 week, fever COMPARISON: None available. TECHNIQUE: 2 views of the chest were obtained. FINDINGS: Dextroscoliosis of the thoracic spine with multilevel degenerative changes. No pleural effusion. Heart size is normal. There is no gross pneumothorax. Patchy opacities in the mid to lower left lung. XR/XR chest 2V IMPRESSION: Patchy opacities in the mid to lower left lung, concerning for pneumonia. This study was presented today May 25, 2024 for interpretation. Stat results provided at this time as requested by referring provider. Electronically signed by: Shannon Gooden MD 05/25/2024 01:30 PM [facility] External Record Review External record reviewed: Inpatient record Prescription Management I considered prescription management with: Antibiotic (Doxycycline, azithromycin) and Other (Prednisone, guaifenesin) Social Determinants Patient?s care significantly limited by Social Determinants of Health including: Other Social Determinant of Health Critical Care Time Critical Care Time Critical Care Time: No Discharge Plan Discharge Clinical Impression: CAP (community acquired pneumonia) Patient Disposition: Home, Self-Care Instructions: Community Acquired Pneumonia (ED) Additional Instructions: You tested negative for COVID, flu, RSV, strep throat. Your chest x-ray shows pneumonia within your mid to lower left lobe. Treatment for this is with antibiotics. I have sent 2 different antibiotics to your pharmacy (azithromycin and doxycycline) for treatment. Take these to completion, do not skip any doses or finish these early as this can cause infection to persist or worsen. I have also sent prednisone (a steroid) to your pharmacy to take over the next 4 days starting tomorrow. You received a dose of this in the ED today. I have also sent cough medicine to your pharmacy for your cough. Continue taking motrin/ tylenol for fevers at home. Follow-up with your primary care provider in 3-4 weeks for repeat chest x-ray to ensure resolution of pneumonia. Return with new or worsening symptoms. In the case of an emergency call 911. Prescriptions: New doxycycline hyclate 100 mg tablet 100 mg PO BID 7 Days Qty: 14 0RF azithromycin 250 mg tablet See Rx Instructions .ROUTE .COMPLEX Qty: 6 0RF Rx Instructions: For 250 mg dose pack: take 500 mg today (day 1), then 250 mg for 4 days (days 2-5) prednisone 20 mg tablet 40 mg PO DAILY 4 Days Qty: 8 0RF guaifenesin 200 mg tablet 200 mg PO TID PRN (Reason: cough) Qty: 10 0RF Stand Alone Forms: Work/School Release Print Language: Japanese
[2024-05-25 14:13] LABS: IDNOW Serial# 08D9AD1C; Strep A Nucleic Acid Negative (Negative)
--- OUTSIDE RECORDS SUMMARY | 2024-05-25 14:28 | XMS_ITS | Continuity of Care Document ---
Author Organization [facility] Address [address] [place] [address]- Care Team Providers Care Lamination Operator Name Role Phone Zoltan SOARES, Melanie Douglas Primary Care Physician ( [phone] [facility] Date(s): 03/24/24 - 03/24/[address] [address]- Discharge Disposition: A-D/C Home Attending Physician: Krishna LAUREN, Aakash Torres Admitting Physician: Krishna LAUREN, Aakash Torres Referring Physician: Not on Staff, Referring MD Allergies, Adverse Reactions, Alerts No Known Allergies Immunizations Given and Recorded Vaccine Date Status Refusal Reason tetanus/diphtheria/pertussis, acel(Tdap) 03/24/24 Given tetanus/diphtheria/pertussis, acel(Tdap) 06/24/17 Given Medications Aerochamber See [...] 17:02:00 EDT, Aerosol, Route to Pharmacy Electronically, [id number], [facility]pharm[facility] #[id number], 168, cm, ... Start Date: 11/28/21 Status: Ordered cephalexin monohydrate 500 mg oral capsule 1 capsule = 500 mg, By Mouth, 4 times a day, for 7 days, # 28 capsule, 0 Refills, Acute 03/31/24 13:04:00 EDT, 03/24/24 13:04:00 EDT, Capsule, [id number], Partial fill upon patient request ifthe prescription is for a schedule II opioid drug.,... Start Date: 03/24/24 Stop Date: 03/31/24 Status: Ordered Problem List Condition Confirmation Course Effective Dates Status Health St atus Informant Elevated hemoglobin A1c Confirmed Active Results Radiology Reports * Exam Date Time Procedure Performing Provider Status 03/24/24 12:06 PM Finger 2nd Right Hand Héctor Busby (Verified) Notes: (Finger 2nd Right Hand) Reason For Exam: Pain RESULT: Finger 2nd Right Hand Examination: Right hand and right second digit performed on March 24, 2024. History: Hx of Present Illness: right index finger lac x 4 days ago on dog food can. Pt sts today edema, throbbing, increased pain; Reason: Pain; Clinical Question(s): Foreign Body Findings: A frontal view of the right hand and oblique and lateral views of the second digit are compared to a prior study dated 10/31/2021. No fractures or dislocations are demonstrated. There are no erosions. No soft tissue air is seen. Soft tissue swelling overlies the second digit. IMPRESSION: Soft tissue swelling. There is no radiographic evidence of osteomyelitis. WSN: [id number] Ordering Physician: Aakash Keller Dictated By: Nancy Mackey MD Dictated Date/Time: 03/24/24 12:40 p Reviewed By: Nancy Mackey MD Signed By: Nancy Mackey MD Signed Date/Time: 03/24/24 12:40 pm Transcribed By: JOHNSON Transcribed Date/Time: 03/24/24 12:39 pm Vital Signs Most recent to oldest [Reference Range]: 1 2 Height 168 cm (03/24/24 1:08 PM) 168 cm (03/24/24 11:48 AM) Weight 80.1 kg (03/24/24 1:08 PM) 80.1 kg (03/24/24 11:48 AM) Oxygen Saturation [94-100 %] 100 % (03/24/24 1:08 PM) 98 % (03/24/24 11:48 AM) Pulse Rate [55-90 bpm] 70 bpm (03/24/24 1:08 PM) 95 bpm *H* (03/24/24 11:48 AM) Body Mass Index [18.5-24.99 kg/m2] 28.38 kg/m2 *H* (03/24/24 1:08 PM) Blood Pressure [90-138/55-84 mm Hg] 114/ 64mm Hg (03/24/24 1:08 PM) 125/70mm Hg (03/24/24 11:48 AM) Respiratory Rate [16-30 br/min] 17 br/mi n (03/24/24 1:08 PM) 20 br/min (03/24/24 11:48 AM) Temperature [96.8-100.4 DegF] 98.4 DegF (03/24/24 11:48 AM) Mode of Delivery (Oxygen) Room air (03/24/24 1:08 PM) Room air (03/24/24 11:48 AM) Blood pressure sites Arm, left (03/24/24 1:08 PM) Arm, left (03/24/24 11:48 AM) Temperature Route Oral (03/24/24 11:48 AM) Dry Weight 80.1 kg (03/24/24 1:08 PM) 80.1 kg (03/24/24 11:48 AM) Weight Obtained Via Standing scale (03/24/24 11:48 AM) Dry Weight Obtained Via Standing scale (03/24/24 11:48 AM) Social History Social History Type Response Tobacco Type: Cigarettes. To bacco use times per day: foremr smoker, 1/2 PPD. Started at age: 19 Years. Stopped at age: 35 Years. Sex Note * Larsen Lyssa ROSALES: PERFORM Event Display: Patient Education Leaflets Authored Date: [id number] Infected Laceration, Not Stitched ?? [id number] Infected Laceration, Not Stitched A??laceration is a cut through the skin. The cut??has become infected.??Because of the infection, and the amount of time that has passed since injury, the wound can't be closed. It will heal best if left open and cleaned daily. It will seal over by growing new tissue from the sides and the bottom of the wound. You will probably have a scar after it has healed.?? Oral antibiotic medicine may be prescribed to treat the infection. Home care ??? If antibiotics have been prescribed, take them exactly as directed. Don't stop takingthem until??they are gone, or you are told to stop, even if you feel better.? Follow the healthcare provider???s directions on how to care for the cut. ??? Unless otherwise directed, change the bandage twice a day for the first few days, until the drainage stops. Then change it once a day. Change the bandage if it becomes wet, stained with wound fluid, or dirty. ??? Clean the wound daily: o After removing the bandage, gently wash the area with soap and water. Use a clean, wet cotton swab to loosen and remove any blood or crust that forms. o After cleaning, apply a thin layer of [id number] antibiotic ointment??if advised.??Reapply a fresh bandage. ??? Follow the healthcare provider's directions for keeping the wound dry. You may be given restrictions on showering or tub baths. ??? If the bandage gets wet, remove it. Gently pat the wound dry with a clean cloth, then replace thewet bandage with a dry one. ??? Don't scratch, rub, or pick at the area. ??? Wash your hands with soap and clean, running water before and after cleaning the wound or changing the bandage. ??? Keep the wound out of prolonged direct sunlight, especially in the summer months. After the wound heals, continue to stay out of direct sunlight, or use a sunscreen with a high level of protection. Sunburn or sun exposure can increase scarring. ?? Follow-up care Follow up with your healthcare provider, or as advised. It's important to follow up to make sure??the infection is getting better. ?? When to get medical advice Call your healthcare provider right away??if any of the following occur: ??? Symptoms don't start to improve, or they get worse ??? Red streaks spread from the wound ??? Drainage from the wound gets worse ??? Pain gets worse ??? Fever of100.4??F (38??C) or higher, or as directed by your healthcare provider ?? Last Reviewed Date: 2022 ?? [id number] The [employer]. All rights reserved. This information is not intended as a substitute for professional medical care. Always follow your healthcare professional's instructions. ?? Patient Care team information Care Team Personnel Name: Melanie Charlton NP Position: [facility] Associate Professional Member Role: PCP Address: Address: [address] [place] [phone]- Care Team Related Persons Name: MARYCARMEN MALDONADO Address: [address] [address]
[2024-05-25 14:35] LABS: Influenza A PCR NEGATIVE (Negative); Influenza B PCR NEGATIVE (Negative); Resp Syncy Virus RNA Qual PCR NEGATIVE (Negative); SARS COV2 PCR INHOUSE NEGATIVE (Negative)
[2024-05-25] MEDS: methylPREDNISolone Sod Succ 125 MG/2 ML VIAL 60 MG IM (14:47)
[2024-05-25] MEDS: Acetaminophen 325 MG TABLET 975 MG PO (14:54)
[2024-05-25] MEDS: Doxycycline Monohydrate 100 MG CAPSULE PO (14:54)
[2024-05-25] MEDS: Azithromycin 500 MG TABLET PO (14:54)
[2024-05-25 15:02] VITALS: BP 99/58; PULSE 98; RESP 20; TEMP 37.1; O2SAT 99
== END 2024-05-25 15:02 | disposition home or self-care (01) ==
PROVIDERS: Registered Nurse Emergency; Emergency Provider Emergency Medicine
DX: J18.9 Pneumonia, unspecified organism (principal); R50.9 Fever, unspecified; R06.02 Shortness of breath; R05.9 Cough, unspecified; R51.9 Headache, unspecified; Z03.818 Encounter for observation for suspected exposure to other biological agents ruled out
CPT/HCPCS: 0241U; 71046; 87651; 96372; 99283; 99284; J2919